=== PATIENT | female | born 1955 | race Caucasian/White ===

== ENCOUNTER 2016-06-23 15:57 | Emergency (ER) | payer OTHER ==
[~2016-06-23] VITALS: Ht 157.5 cm; Wt 102.0 kg
[~2016-06-23 15:57] MED LIST: ESCI10TA PO; IBUP100S30 PO; MELO7.5; SYNT25TA PO
[2016-06-23 16:02] VITALS: BP 151/91; PULSE 103; RESP 18; TEMP 98.5; O2SAT 98
[2016-06-23] MEDS ORDERED: SIMV5TAB3 PO (16:33)
[2016-06-23] MEDS ORDERED: METF500T PO (16:33)
[2016-06-23] MEDS ORDERED: OMEP10CA PO (16:33)
[2016-06-23] MEDS ORDERED: LEXA5TAB PO (16:33)
[2016-06-23] MEDS ORDERED: STEROID (16:33)
[2016-06-23] MEDS ORDERED: BENZ100 PO (16:33)
--- NOTE | 2016-06-23 17:08 | PD ---
HPI Chief Complaint: Cold / Flu Symptoms Time Seen by Provider: 16:56 Travel History International Travel<30 days: No Contact w/Intl Traveler<30days: No Traveled to known affect area: No History of Present Illness HPI 61-year-old female complains of coughing congestion and wheezing. Patient states that she started having persistent cough about week ago. Patient was seen by personal physician and diagnosed with bronchitis. Patient was given prescription for steroid, Tessalon and Z-Juan. Patient states that she had persistent cough and wheezing despite the medications. Patient denies any history of asthma or COPD. Patient is a nonsmoker. Patient denies any fever chills. Patient states that she had chest wall pain with coughing. Patient denies any nausea vomiting diarrhea. Patient has history of GERD, diabetes, dyslipidemia, depression. PFSH Past Medical History Depression: Yes High Cholesterol: Yes Diabetes: Yes (2) Patient Takes Glucophage: Yes GERD: Yes ?: Not Menopausal: Yes Tubal Ligation: Yes Past Surgical History Genitourinary Surgery: Yes (BLADDER SLING) Gynecologic Surgery: Yes (OOPHRECTOMY) Joint Replacement: Yes (RIGHT TKR) Social History Alcohol Use: Yes (occasional) Tobacco Use: No Substance Use: No Allergies-Medications (Allergen,Severity, Reaction): Coded Allergies: Betadine (Verified Allergy, Mild, RASH, 06/23/16) Reported Meds & Prescriptions Reported Meds & Active Scripts Active Reported Tessalon Perles (Benzonatate) 100 Mg Cap 100 Mg PO TID PRN [Steroid Dose Pk] Lexapro (Escitalopram Oxalate) 5 Mg Tab 5 Mg PO DAILY Omeprazole 10 Mg Cap 10 Mg PO DAILY Simvastatin 5 Mg Tab 5 Mg PO DAILY Metformin (Metformin HCl) 500 Mg Tab 500 Mg PO BIDPC With meals Review of Systems General / Constitutional: No: Fever Eyes: No: Visual changes HENT: No: Headaches Cardiovascular: No: Chest Pain or Discomfort Respiratory: Positive: Cough, No: Shortness of Breath Gastrointestinal: No: Abdominal Pain Genitourinary: No: Dysuria Musculoskeletal: No: Pain Skin: No Rash Neurologic: No: Weakness Psychiatric: No: Depression Endocrine: No: Polydipsia Hematologic/Lymphatic: No: Easy Bruising Physical Exam Narrative GENERAL: Well-nourished, well-developed patient. SKIN: Focused skin assessment warm/dry. HEAD: Normocephalic. EYES: No scleral icterus. No injection or drainage. NECK: Supple, trachea midline. No JVD or lymphadenopathy. CARDIOVASCULAR: Regular rate and rhythm without murmurs, gallops, or rubs. RESPIRATORY: Breath sounds equal bilaterally. No accessory muscle use. Patient has moderate expiratory wheezes bilaterally with few rhonchi at the bases. GASTROINTESTINAL: Abdomen soft, non-tender, nondistended. MUSCULOSKELETAL: No cyanosis, or edema. BACK: Nontender without obvious deformity. No CVA tenderness. Data Data Last Documented VS Vital Signs Date Time Temp Pulse Resp B/P Pulse Ox O2 Delivery O2 Flow Rate FiO2 06/23/16 16:02 98.5 103 18 151/91 98 Orders Influenzae A/B Antigen (06/23/16 17:03) Chest, Single Ap (06/23/16 17:03) Albuterol-Ipratropium Neb (Duoneb Neb) (06/23/16 17:15) Dexamethasone Inj (Decadron Inj) (06/23/16 17:15) Resp Mdi / Spacer Instruction (06/23/16 17:08) MDM Medical Decision Making Medical Screen Exam Complete: Yes Emergency Medical Condition: Yes Interpretation(s) 1750 p.m. Chest x-ray shows no acute consolidation. Influenza AB antigen negative Differential Diagnosis Differential diagnosis including reactive airway disease, bronchitis, pneumonia , PE, pneumothorax. Narrative Course 61-year-old female with persistent coughing and wheezing. Patient finished Z- Juan and Tessalon and steroid without much relief. Albuterol with Atrovent unit dose treatment 2. Decadron 8 mg IM. Diagnosis Primary Impression: Bronchitis Additional Impression: Reactive airway disease Qualified Code: J45.21 - Reactive airway disease, mild intermittent, with acute exacerbation Patient Instructions: General Instructions Additional Instructions: Use albuterol inhaler as needed. Take medications as directed. Follow-up with personal physician. Return if worse. Med/Other Pt SpecificInfo: Prescription(s) given Scripts Amoxicillin 500 Mg [id number] Mg PO TID #21 CAP Ref 0 Prov:Meet Rosario MD 06/23/16 [Phenergan W Codein] No Conflict Check10 Ml PO Q6HR #120 Prov:Meet Rosario MD 06/23/16 Albuterol 8.5 GM Inh (Proair Hfa 8.5 GM Inh)90 Mcg/Act Aer2 Puff INH Q4-6H PRN ( SHORTNESS OF BREATH) #1 INHALER 108 mcg/actuation Prov:Meet Rosario MD 06/23/16 Prednisone 20 Mg Tab20 Mg PO BID #10 TAB Prov:Meet Rosario MD 06/23/16 Disposition: 01 DISCHARGE HOME Condition: Stable Meet Rosario MD Jun 23, 2016 17:08
[2016-06-23] MEDS: RESP: ALBUTEROL 2.5 MG/IPRATROPIUM 0.5 MG NEB (SCH) INH ×2 (17:09→17:10)
[2016-06-23] MEDS ORDERED: DEXAMETHASONE SOD PHOS 4 MG/ML VIAL IM ONE (17:15)
[2016-06-23] MEDS ORDERED: ALBUAER3 INH (17:56)
[2016-06-23] MEDS ORDERED: PRED20 PO (17:56)
[2016-06-23] MEDS ORDERED: PHENERGAN W CODEIN PO (17:56)
[2016-06-23] MEDS ORDERED: AMOX500C PO (17:56)
--- NOTE | 2016-06-23 17:56 | RADHPO ---
EXAM DATE/TIME: 06/23/2016 17:32 [facility] COMPARISON: No previous studies available for comparison. INDICATIONS : Bronchitis, cough and short of breath. MEDICAL HISTORY : Diabetes mellitus type II. SURGICAL HISTORY : None. ENCOUNTER: Initial ACUITY: 4 - 6 days PAIN SCORE: 1/10 LOCATION: Bilateral chest FINDINGS: A single view of the chest demonstrates the lungs to be symmetrically aerated without evidence of mas s, infiltrate or effusion. The cardiomediastinal contours are unremarkable. Osseous structures are intact. CONCLUSION: No acute disease. Acosta Joy MD on June 23, 2016 at 17:54 Board Certified Radiologist. This report was verified electronically.
== END 2016-06-23 18:11 | disposition home or self-care (01) ==
LOC: PHEFT 15:57
DX: J20.9 Acute bronchitis, unspecified (principal); J45.21 Mild intermittent asthma with (acute) exacerbation; F32.9 Major depressive disorder, single episode, unspecified; E78.00 Pure hypercholesterolemia, unspecified; E11.9 Type 2 diabetes mellitus without complications; K21.9 Gastro-esophageal reflux disease without esophagitis
CPT/HCPCS: 71010; 87804; 94640; 94664; 96372; 99283; J1100

== ENCOUNTER 2017-06-18 09:42 | Emergency (ER) | payer OTHER ==
[~2017-06-18] VITALS: Ht 157.5 cm; Wt 87.3 kg
[~2017-06-18 09:42] MED LIST changes: +ALBUAER3 INH; +AMOX500C PO; +BENZ100 PO; -ESCI10TA PO; -IBUP100S30 PO; +LEXA5TAB PO; -MELO7.5; +METF500T PO; +OMEP10CA PO; +PHENERGAN W CODEIN PO; +PRED20 PO; +SIMV5TAB3 PO; +STEROID; -SYNT25TA PO
[2017-06-18 09:45] VITALS: BP 120/88; PULSE 95; RESP 16; TEMP 97.7; O2SAT 97
[2017-06-18] MEDS ORDERED: EMPA1TAB15 PO (09:57)
[2017-06-18] MEDS ORDERED: VICT18IN SQ (09:57)
--- NOTE | 2017-06-18 10:09 | PD ---
HPI Chief Complaint: Foreign Body Time Seen by Provider: 09:55 Travel History International Travel<30 days: No Contact w/Intl Traveler<30days: No Traveled to known affect area: No History of Present Illness HPI This 62-year-old female believes that she has a needle in her abdomen. She has a history of diabetes and takes Victoza. She was giving an injection yesterday and the medication came out on the abdomen making her think that the needle had broken off inside her abdomen. She has not seen the needle in the abdomen or felt. PFSH Past Medical History Depression: Yes High Cholesterol: Yes Diabetes: Yes (2) Patient Takes Glucophage: No GERD: Yes ?: Not Menopausal: Yes Tubal Ligation: Yes Past Surgical History Genitourinary Surgery: Yes (BLADDER SLING) Gynecologic Surgery: Yes (OOPHRECTOMY) Joint Replacement: Yes (BILAT KNEES) Social History Alcohol Use: Yes (RARELY) Tobacco Use: No Substance Use: No Allergies-Medications (Allergen,Severity, Reaction): Coded Allergies: povidone-iodine (Unverified Allergy, Mild, RASH, 06/18/17) Reported Meds & Prescriptions Reported Meds & Active Scripts Active Reported Synjardy (Empagliflozin-Metformin) 5-1,000 Mg Tab 1 Tab PO DAILY Victoza Inj (Liraglutide Inj) 18 Mg/3 Ml Pen 1.8 Mg SQ DAILY Lexapro (Escitalopram Oxalate) 5 Mg Tab 5 Mg PO DAILY Simvastatin 5 Mg Tab 5 Mg PO DAILY Review of Systems General / Constitutional: No: Fever, Chills Gastrointestinal: No: Vomiting, Diarrhea Genitourinary: No: Urgency Physical Exam Narrative GENERAL well-developed female SKIN: Focused skin assessment warm/dry. Imaging the abdomen which is the site where the needle was injected I do not see any foreign body and did not feel any irregularity EYES: Pupils equal and round. No scleral icterus. No injection or drainage. ENT: No nasal bleeding or discharge. Mucous membranes pink and moist. NECK: Trachea midline. No JVD. . GASTROINTESTINAL: Abdomen soft, non-tender, nondistended. Hepatic and splenic margins not palpable. MUSCULOSKELETAL: No obvious deformities. No clubbing. No cyanosis. No edema. NEUROLOGICAL: Awake and alert. No obvious cranial nerve deficits. Motor grossly within normal limits. Normal speech. PSYCHIATRIC: Appropriate mood and affect; insight and judgment normal. Data Data Last Documented VS Vital Signs Date Time Temp Pulse Resp B/P (MAP) Pulse Ox O2 Delivery O2 Flow Rate FiO2 06/18/17 09:45 97.7 95 16 120/88 (99) 97 Orders Orders Abdomen, Kub & Lat (06/18/17 ) MDM Medical Decision Making Medical Screen Exam Complete: Yes Emergency Medical Condition: Yes Medical Record Reviewed: Yes Differential Diagnosis Differential includes retained foreign body, Narrative Course Study does not show any metallic foreign body. Patient is stable for discharge Diagnosis Primary Impression: No foreign body Disposition: 01 DISCHARGE HOME Condition: Stable Lucas Rowe MD Jun 18, 2017 10:09
--- NOTE | 2017-06-18 11:44 | RADRPT ---
EXAM DATE/TIME: 06/18/2017 10:15 [facility] COMPARISON: No previous studies available for comparison. INDICATIONS : Foreign body, patient thinks needle from diabetic meds broke off in her soft tissue in her lower left quadrant abdomen. MEDICAL HISTORY : Diabetes mellitus type II. SURGICAL HISTORY : Tubal ligation. bladder sling, oophrectomy ENCOUNTER: Initial ACUITY: 2 days PAIN SCORE: 0/10 LOCATION: Left lower quadrant abdomen FINDINGS: Examination of the abdomen demonstrates a normal bowel gas pattern. No free air is identified. No o rganomegaly is evident. Osseous structures are intact. No radiopaque foreign body is located in the left lower quadrant at the level of interest. CONCLUSION: No definite metallic foreign body is demonstrated in the left lower quadrant. Adolfo Cho MD on June 18, 2017 at 11:41 Board Certified Radiologist. This report was verified electronically.
== END 2017-06-18 11:58 | disposition home or self-care (01) ==
LOC: PHED 09:42
DX: Z03.89 Encounter for observation for other suspected diseases and conditions ruled out (principal); E11.9 Type 2 diabetes mellitus without complications; E78.00 Pure hypercholesterolemia, unspecified; Z79.4 Long term (current) use of insulin
CPT/HCPCS: 74019; 99283